=== PATIENT | female | born 1970 | race Caucasian/White ===

== ENCOUNTER → 2022-09-20 | Outpatient (CLI) | payer MEDICARE ==
[2022-09-20 13:28] LABS: HCT 47.9 % (37.2-46.3); HGB 15.5 d/dL (12.0-15.0); MCH 27.9 pg (27.0-32.0); MCHC 32.4 d/dL (32.0-37.0); MCV 86.3 FL (80.0-97.0); Mean Platelet Volume 11.7 FL (9.5-12.2); NRBC Per 100 WBC 0 X 10*3/uL (0.00-0.01); Platelet Count 160 X 10*3/uL (140-440); RBC 5.55 X 10*6/uL (4.10-5.20); RDW 12.8 % (11.5-14.5); WBC 8.12 X 10*3/uL (4.50-10.00)
[2022-09-20 14:07] LABS: ALT 30 U/L (8-44); AST 20 U/L (13-35); Albumin 4.9 d/dL (3.8-4.9); Albumin/Globulin Ratio 1.75 Ratio (1.60-3.17); Alkaline Phosphatase 98 U/L (41-126); Blood Urea Nitrogen 12.8 mg/dL (9.0-27.0); Calcium 9.6 mg/dL (8.7-10.3); Carbon Dioxide 24.4 mmol/L (21.6-31.8); Chloride 100 mmol/L (96-109); Globulin 2.8 d/dL (1.6-3.3); Glucose 170 mg/dL (70-110); Potassium 4.4 mmol/L (3.5-5.5); Sodium 138 mmol/L (135-145); Total Bilirubin 0.4 mg/dL (0.3-1.2); Total Protein 7.7 d/dL (6.2-8.2)
[2022-09-21 10:27] LABS: T4/T8 Ratio (CD4:CD8) 0.7 (1.0-3.7)
== END | disposition home or self-care (01) ==
LOC: LABWHC1 08:15
PROVIDERS: ATTEND Internal Medicine
DX: Z21 Asymptomatic human immunodeficiency virus [HIV] infection status (principal)
CPT/HCPCS: 36415; 80053; 85027; 86355; 86357; 86359; 86360; 86480; 87536